=== PATIENT | female | born 1950 | race Caucasian/White ===

== ENCOUNTER 2020-03-02 09:20 | Outpatient (CLI) | payer OTHER, MEDICARE, SELFPAY ==
[2020-03-02 10:23] LABS: Basophils Absolute Auto 0.1 K/mm3 (0.0-0.1); Basophils Percent Auto 0.7 % (0.2-1.2); Eosinophils Absolute Auto 0.1 K/mm3 (0-0.3); Eosinophils Percent Auto 1.2 % (0-4.4); Hematocrit 45.7 % (37.0-47.0); Immature Granulocyte Absolute 0.03 K/mm3 (0.00-0.031); Immature Granulocyte Percent A 0.4 % (0-0.5); Lymphocytes Absolute Auto 1.85 K/mm3 (0.9-3.2); Lymphocytes Percent Auto 24.8 % (18.3-44.2); Mean Corpuscular HGB Conc 32.8 g/dl (32-36); Mean Corpuscular Hemoglobin 30.1 pg (26-34); Mean Corpuscular Volume 91.8 fl (80-100); Mean Platelet Volume 9.9 fl (7.4-10.4); Monocytes Absolute Auto 0.4 K/mm3 (0.1-0.6); Monocytes Percent Auto 5.9 % (2.6-8.5); Platelet Count Result 296 k/mm3 (150-375); Red Blood Count 4.98 M/mm3 (4.2-5.4); Red Cell Distribution Width 14.6 % (11.5-14.5); White Blood Count 7.5 K/mm3 (4.5-10.0)
[2020-03-02 10:30] LABS: Alanine Aminotransferase 15 U/L (4-35); Albumin Level 4.5 g/dL (3.5-5.1); Alkaline Phosphatase 99 U/L (38-126); Aspartate Amino Transferase 27 U/L (14-36); Bilirubin,Total 0.3 mg/dL (0.2-1.3); Blood Urea Nitrogen 22 mg/dL (7-17); Calcium 9.2 mg/dL (8.4-10.2); Carbon Dioxide 22 mmol/L (22-30); Chloride 107 mmol/L (98-107); Cholesterol 234 mg/dL (0-200); Estimated Glomerular Filt Rate > 60; Glucose 103 mg/dL (65-105); HDL Direct 80 mg/dL; Potassium 3.9 mmol/L (3.4-5.0); Sodium 138 mmol/L (137-145); Triglycerides 123 mg/dL (<150)
[2020-03-02 10:41] LABS: LDL Cholesterol Direct 114 mg/dL
[2020-03-02 11:01] LABS: Total Triiodothyronine (T3) 1.07 NG/ML (0.97-1.69)
[2020-03-02 11:28] LABS: Free T4 Free Thyroxine 1.15 ng/mL (0.78-2.19); Vitamin D 25 Hydroxy 29.1 ng/mL
[2020-03-02 11:29] LABS: Creatinine Urine 169.6 mg/dL
[2020-03-02 11:34] LABS: MALB Creatinine Ratio 35.4 mg/g (0-30); Microalbumin Urine Random 60.1 mg/L (0-16.7)
[2020-03-07 08:22] LABS: Metanephrine, Free 48 pg/mL (<=57); Normetanephrine, Free 215 pg/mL (<=148); Total, Free (MN + NMN) 263 pg/mL (<=205)
[2020-03-07 13:47] LABS: Renin 2.66 ng/mL/h (0.25-5.82)
== END 2020-03-02 09:21 | disposition home or self-care (01) ==
PROVIDERS: PCP Family Medicine; Visit Provider Family Medicine
DX: M62.81 Muscle weakness (generalized) (principal); I10 Essential (primary) hypertension; M47.897 Other spondylosis, lumbosacral region; E78.2 Mixed hyperlipidemia; E55.9 Vitamin D deficiency, unspecified
CPT/HCPCS: 36415; 80053; 80061; 82043; 82306; 82542; 83835; 84244; 84439; 84443; 84480; 85025

== ENCOUNTER 2020-03-04 17:24 | Outpatient (CLI) | payer OTHER, MEDICARE, SELFPAY ==
[2020-03-04 18:19] LABS: Total Volume 24 Hour Urine 900 ml
[2020-03-04 18:27] LABS: Creatinine 24 Hour Urine 0.6 gm/24 (0.8-1.8)
[2020-03-09 16:21] LABS: Calculated Total (E+NE) 39 mcg/24 h (26-121); Dopamine, 24hr Urine 579 mcg/24 h (52-480); Norepinephrine, 24hr Urine 39 mcg/24 h (15-100)
[2020-03-14 08:37] LABS: Metanephrine, Total Urine 411 mcg/24 h (224-832); Metanephrine, Urine 93 mcg/24 h (90-315); Normetanephrine, Urine 318 mcg/24 h (122-676); Vanillymandelic Acid 24 Hr Ur 2.7 mg/24 h (<=6.0)
== END 2020-03-04 17:25 | disposition home or self-care (01) ==
PROVIDERS: PCP Family Medicine; Visit Provider Family Medicine
DX: M62.81 Muscle weakness (generalized) (principal); I10 Essential (primary) hypertension; M47.897 Other spondylosis, lumbosacral region; E78.2 Mixed hyperlipidemia; E55.9 Vitamin D deficiency, unspecified
CPT/HCPCS: 81050; 82384; 82570; 83835; 84585

== ENCOUNTER 2020-03-11 14:53 | Emergency (ER) | payer OTHER, MEDICARE, SELFPAY ==
[2020-03-11] VITALS (13 sets, daily range): BP systolic 149–174; BP diastolic 83–97; PULSE 66–75; RESP 13–19; TEMP 36.2; O2SAT 93–100
--- NOTE | ~2020-03-11 | CT_ITS ---
EXAMINATION: CT brain wo con DATE: 03/11/2020 16:01 INDICATION: Headache. TECHNIQUE: Computed tomography (CT) of the head was performed without intravenous contrast. The mA wa s adjusted according to patient size. Iterative reconstruction technique was employed. The dose-lengt h product was 605.33 mGy-cm. COMPARISON: Head CT 10/02/2009 FINDINGS: There is a small old infarct in left cerebellum. There are scattered areas of low attenuati on in the cerebral white matter. There is no intracranial hemorrhage, acute infarction, or abnormal i ntracranial mass lesion. The ventricles are normal in size. There is mild mucosal thickening in the p aranasal sinuses. The mastoid air cells are normal. The orbits are normal. IMPRESSION: 1. Small old infarct in left cerebellum. 2. Mild nonspecific cerebral white matter disease, which likely represents chronic small vessel ische asher disease. Reviewed, dictated and finalized at location A. IMPRESSION: 1. Small old infarct in left cerebellum. 2. 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
--- NOTE | 2020-03-11 15:43 | ECG_ITS ---
Measurements Intervals [place] Rate: 76 P: 85 LA: 141 QRS: 52 QRSD: 86 T: 6 QT: 386 QTc: 434 Interpretive Statements ELECTRONIC ATRIAL PACEMAKER BORDERLINE T WAVE ABNORMALITY- INF/LAT LEADS BORDERLINE ECG Electronically Signed On 03-11-2020 16:47:21 CDT by Kirby Bassett D.O.
[2020-03-11] MEDS: SODIUM CHLORIDE 0.9% IV 1,000 ML 999 ML IV CONT (16:14)
[2020-03-11 16:25] LABS: Basophils Absolute Auto 0.1 K/mm3 (0.0-0.1); Basophils Percent Auto 0.7 % (0.2-1.2); Eosinophils Absolute Auto 0.1 K/mm3 (0-0.3); Eosinophils Percent Auto 1.1 % (0-4.4); Hematocrit 42.3 % (37.0-47.0); Hemoglobin 13.8 g/dL (12.0-15.0); Immature Granulocyte Absolute 0.04 K/mm3 (0.00-0.031); Immature Granulocyte Percent A 0.5 % (0-0.5); Lymphocytes Absolute Auto 2.12 K/mm3 (0.9-3.2); Lymphocytes Percent Auto 29.1 % (18.3-44.2); Mean Corpuscular HGB Conc 32.6 g/dl (32-36); Mean Corpuscular Hemoglobin 30.2 pg (26-34); Mean Corpuscular Volume 92.6 fl (80-100); Mean Platelet Volume 9.7 fl (7.4-10.4); Monocytes Absolute Auto 0.5 K/mm3 (0.1-0.6); Neutrophils Absolute Auto 4.5 K/mm3 (1.3-6.7); Neutrophils Percent Auto 61.6 % (45.5-73.1); Platelet Count Result 281 k/mm3 (150-375); Red Blood Count 4.57 M/mm3 (4.2-5.4); Red Cell Distribution Width 14.3 % (11.5-14.5); White Blood Count 7.3 K/mm3 (4.5-10.0)
[2020-03-11 16:34] LABS: Blood Urea Nitrogen 21 mg/dL (7-17); Calcium 8.8 mg/dL (8.4-10.2); Carbon Dioxide 26 mmol/L (22-30); Chloride 107 mmol/L (98-107); Estimated CRCL calculation 38 ml/min; Estimated Glomerular Filt Rate 55; Glucose 84 mg/dL (65-105); Potassium 3.8 mmol/L (3.4-5.0); Sodium 139 mmol/L (137-145)
[2020-03-11 16:36] LABS: Partial Thromboplastin Time 26.8 SECONDS (22.3-36.8); Prothrombin Time 12.4 Seconds (11.1-14.7)
[2020-03-11 16:45] LABS: Troponin I < 0.012 ng/mL (0.000-0.034)
--- NOTE | 2020-03-11 17:28 | ED.GENADULT ---
HPI - General Adult General Chief complaint: Recheck/Abnormal Lab/Rx <GUSTAVO Noland Last Filed: 03/11/20 17:33> Stated complaint: hypertension <GUSTAVO Noland Last Filed: 03/11/20 17:33> Time Seen by Provider: 03/11/20 15:30 <GUSTAVO Noland Last Filed: 03/11/20 17:33> Source: patient <GUSTAVO Noland Last Filed: 03/11/20 17:33> Mode of arrival: ambulatory <GUSTAVO Noland Last Filed: 03/11/20 17:33> Limitations: no limitations <GUSTAVO Noland Last Filed: 03/11/20 17:33> History of Present Illness HPI narrative: Patient is a 69-year-old female who presents to emergency department for evaluation of elevated blood pressure reading noted at work patient also notes having had a headache for the last couple of days frontal in nature patient is on multiple blood pressure medication has been followed by primary care for this patient on arrival to emergency department is resting comfortably in the room in no distress patient denies any other complaints or symptoms and is otherwise resting comfortably on arrival <GUSTAVO Noland Last Filed: 03/11/20 17:33> Related Data Home medications: Home Medications Medication Instructions Recorded Confirmed amlodipine 03/11/20 atorvastatin 03/11/20 clonidine HCl 03/11/20 cyclobenzaprine mg 03/11/20 ergocalciferol (vitamin D2) 03/11/20 03/11/20 lisinopril 03/11/20 metoprolol succinate PO 03/11/20 pantoprazole PO 03/11/20 tramadol mg 03/11/20 <GUSTAVO Noland Last Filed: 03/11/20 17:33> Allergies/adverse reactions: Allergies Allergy/AdvReac Type Severity Reaction Status Date / Time penicillin G Allergy Mild Unknown Verified 03/11/20 14:55 Penicillins Allergy Unknown Unknown Verified 03/11/20 14:55 <GUSTAVO Noland Last Filed: 03/11/20 17:33> Review of Systems Review of Systems: All systems reviewed & are unremarkable except as noted in HPI and below <GUSTAVO Noland Last Filed: 03/11/20 17:33> [facility] Past Medical History Medical History: Medical History (Updated 03/11/20 @ 17:30 by Hugo Gonzalez PA-C) Hypertension <Hugo Gonzalez PA-C - Last Filed: 03/11/20 17:33> Social History Social History: Social History Smoking status: Light tobacco smoker Alcohol intake: never Gender identity (if verbalized by the patient): Female <Hugo Gonzalez PA-C - Last Filed: 03/11/20 17:33> Exam Narrative: Exam Narrative: GENERAL: Well-appearing, well-nourished, and in no acute distress. HEAD: Normocephalic, atraumatic. EYES: PERRLA and EOMI. ENT: Nares clear, no rhinorrhea or epistaxis. Mucous membranes moist. CHEST: Clear to auscultation. No respiratory distress. No wheezes rales or rhonchi HEART: Regular rate and rhythm. No murmur heard. EXTREMITIES: Normal range of motion. No edema. SKIN: Warm, dry, no rash. NEURO: No focal deficits. Alert and oriented x3. Cranial nerves II through XII grossly intact PSYCH: Normal mood and affect. <Hugo Gonzalez PA-C - Last Filed: 03/11/20 17:33> Course Course Emergency Course: Patient in the room was hydrated given Tylenol with improvement of the headache resting comfortably neurologically intact aware of case findings treatment plan and diagnosis agreeing to follow-up with primary care <Hugo Gonzalez PA-C - Last Filed: 03/11/20 17:33> Vital Signs Vital signs: Vital Signs Temperature 97.2 F L 03/11/20 15:03 Pulse Rate 66 03/11/20 15:03 Respiratory Rate 18 03/11/20 15:03 Blood Pressure 155/96 H 03/11/20 15:03 Pulse Oximetry 98 03/11/20 15:03 Temperature 97.2 F L 03/11/20 15:03 Pulse Rate 70 03/11/20 16:16 Respiratory Rate 13 03/11/20 16:16 Blood Pressure 169/89 H 03/11/20 16:16 Pulse Oximetry 100 03/11/20 16:16 <Hugo Gonzalez PA-C - [place]
== END 2020-03-11 18:00 | disposition home or self-care (01) ==
PROVIDERS: Emergency Medicine Emergency Medical Services; Emergency Provider Emergency Medicine; PCP Family Medicine
DX: R51 Headache (principal); I10 Essential (primary) hypertension; Z95.0 Presence of cardiac pacemaker; R94.31 Abnormal electrocardiogram [ECG] [EKG]; F17.200 Nicotine dependence, unspecified, uncomplicated
CPT/HCPCS: 36415; 70450; 80048; 84484; 85025; 85610; 85730; 93005; 96365; 99284; J0131; J7030

== ENCOUNTER 2020-06-20 09:28 | Outpatient (CLI) | payer MEDICARE, SELFPAY ==
--- NOTE | ~2020-06-20 | US_ITS ---
EXAMINATION: US venous doppler LE RT DATE: 06/20/2020 10:01 INDICATION: Right lower limb pain TECHNIQUE: Prater scale images without and with compression and Doppler images of the right lower extre mity veins were obtained. COMPARISON: None FINDINGS: The right common femoral vein, profunda femoral vein, femoral vein, popliteal vein, peronea l trunk, posterior tibial veins, and greater saphenous vein are patent. IMPRESSION: 1. Patent right lower extremity veins. No evidence of deep venous thrombosis. Reviewed, dictated and finalized at location A.
== END 2020-06-20 09:29 | disposition home or self-care (01) ==
LOC: ANHIMG 09:40
PROVIDERS: PCP Nurse Practitioner; Visit Provider Nurse Practitioner
DX: M79.661 Pain in right lower leg (principal)
CPT/HCPCS: 93971

== ENCOUNTER 2020-08-21 11:10 | Outpatient (CLI) | payer MEDICARE, SELFPAY ==
--- NOTE | ~2020-08-21 | XR_ITS ---
EXAMINATION: XR lg joint inject/asp w image DATE: 08/21/2020 11:56 INDICATION: Right hip arthritis. TECHNIQUE: A time-out was performed to verify the patient's name, date of , and procedure to b e performed. The procedure including the risks, benefits, and alternatives was discussed with the pat ient. Risks discussed included bleeding and infection. The patient understood the risks and agreed to proceed. The skin overlying the right hip joint was prepped and draped in usual sterile fashion. A nesthetic was administered with 1% lidocaine subcutaneously. A 22 G needle was advanced under fluoro scopic guidance into the joint. Injection of 1 mL of Omnipaque 240 confirmed intra-articular positio n of the needle. Subsequently, injectate consisting of 2 mL 0.5% bupivacaine and 1 mL 80 mg/mL Depo- Medrol was instilled. The needle was removed and the entry site was cleaned and dressed. There were no immediate complications. Fluoroscopy exposure time was 0.1 minutes. The total number of images wa s 2. FINDINGS: Real-time fluoroscopy demonstrates the needle in the right hip joint. Patient's pain prior to procedure:06/15. Patient's pain following the procedure: 10/16. IMPRESSION: 1. Right hip joint injection of local anesthetic and steroid with decrease in the patient's presentin g pain. Reviewed, dictated and finalized at location A. CONSULTANT IMPRESSION: 1. Right hip joint injection of local anesthetic and steroid with decrease in t he patient's presenting pain.
== END 2020-08-21 11:11 | disposition home or self-care (01) ==
PROVIDERS: PCP Nurse Practitioner; Visit Provider Orthopaedic Surgery
DX: M16.11 Unilateral primary osteoarthritis, right hip (principal)
CPT/HCPCS: 20610; 77002; J1040; Q9966

== ENCOUNTER 2020-11-25 12:55 | Outpatient (CLI) | payer MEDICARE, SELFPAY ==
[2020-11-25 14:07] LABS: Vitamin D 25 Hydroxy 30.9 ng/mL
== END 2020-11-25 12:56 | disposition home or self-care (01) ==
PROVIDERS: PCP Nurse Practitioner; Visit Provider Nurse Practitioner
DX: E55.9 Vitamin D deficiency, unspecified (principal)
CPT/HCPCS: 36415; 82306

== ENCOUNTER 2020-11-29 07:55 | Outpatient (CLI) | payer MEDICARE, SELFPAY ==
--- NOTE | ~2020-11-29 | US_ITS ---
US abdomen complete EXAMINATION: US Abdomen Complete INDICATION: Generalized abdominal pain PROCEDURE: Realtime High Resolution abdomen ultrasound. COMPARISON: No prior studies for comparison FINDINGS: Gallbladder within normal limits. No gallstones, pericholecystic fluid, gallbladder wall t hickening or biliary dilatation. Common bile duct measures 7 mm. Liver echotexture within normal limits without focal mass. Pancreas within normal limits. Pancreati c tail is obscured by bowel gas. Spleen is unremarkeable. Renal echotexture is within normal limits bilaterally without hydronephrosis, contour deforming mass or renal stone. Right kidney measures 8.4 cm. Left kidney measures 10.2 cm. Visualized aspects of the aorta and IVC are within normal limits. Portal vein is patent. No sonograph ic Newsome's sign indicated by the technologist. IMPRESSION: 1: Normal abdominal ultrasound. Reviewed, dictated and finalized at location B.
== END 2020-11-29 07:56 | disposition home or self-care (01) ==
PROVIDERS: PCP Nurse Practitioner; Visit Provider Nurse Practitioner
DX: R10.10 Upper abdominal pain, unspecified (principal)
CPT/HCPCS: 76700

== ENCOUNTER 2020-12-26 07:42 | Outpatient (CLI) | payer MEDICARE, SELFPAY ==
--- NOTE | ~2020-12-26 | DEXA_ITS ---
Bone Density Report Name: Katie Alexander Age: 70 Sex: Female Ethnicity: White Date of : 1950 Indication: postmenopausal osteoporosis; prior fracture; hysterectomy; Referring Provider: Mario, Grace Arvizu Study: Bone densitometry was performed. Exam Date: December 26, 2020 Accession number: [id number] Bone Density: Region BMD T-score Z-score Classification AP Spine (L1-L4) 0.661 -3.5 -1.5 Osteoporosis Femoral Neck (Left) 0.474 -3.4 -1.7 Osteoporosis Total Hip (Left) 0.539 -3.3 -1.9 Osteoporosis Total Hip Bilateral Avg 0.538 -3.3 -1.9 Osteoporosis Femoral Neck (Right) 0.515 -3.0 -1.3 Osteoporosis Total Hip (Right) 0.536 -3.3 -1.9 Osteoporosis World Health Organization criteria for BMD impression classify patients as: Normal (T-score at or above -1.0), Osteopenia (T-score between -1.0 and -2.5), or Osteoporosis (T-score at or below -2.5). 10-year Fracture Risk: FRAX not reported because: Some T-score for Spine Total or Hip Total or Femoral Neck at or below -2.5 Previous Exams: Region Exam Age BMD T-score BMD Change BMD Change Date g/cm2 vs Baseline vs Previous AP Spine(L1-L4) 12/26/2020 70 0.661 -3.5 -0.035(-5.1%)* -0.035(-5.1%)* 06/01/2018 67 0.696 -3.2 Total Hip(Left) 12/26/2020 70 0.539 -3.3 -0.028(-4.9%)* -0.028(-4.9%)* 06/01/2018 67 0.567 -3.1 Total Hip(Right) 12/26/2020 70 0.536 -3.3 -0.007(-1.4%) -0.007(-1.4%) 06/01/2018 67 0.543 -3.3 *Denotes significance at 95% confidence level, LSC for AP Spine = 0.022 g/cm2, LSC for Total Hip = 0.027 g/cm2 Clinical Information Provided by Patient: Has had a low trauma fracture Has used the following medications: Vitamin D Has the following medical conditions: Hysterectomy Patient maximum height was 64 Menopause Age: 32 No regular weight bearing exercise Does not regularly consume dairy products Onset of menses at age 16 Number of children 2 Impression: The patient has established osteoporosis, based on the Total Spine T-score and the existence of a prior fracture. The patient has risk factors, including: previous fracture. The BMD for the AP Spine(L1-L4) decreased, changing by -5.1% since the last DXA exam. The BMD for the Total Hip(Left) decreased, changing by -4.9% since the last DXA exam. Discussion: HIGH RISK OF FRACTURE. BONE DENSITY IS UNDESIRABLY LOW AT ONE OR MORE SKELETAL SITES, CONSISTENT WITH POSTMENOPAUSAL OSTEOPOROSIS. This patient's lowest T-score, in a patient who has previo
== END 2020-12-26 07:43 | disposition home or self-care (01) ==
PROVIDERS: PCP Nurse Practitioner; Visit Provider Nurse Practitioner
DX: M81.0 Age-related osteoporosis without current pathological fracture (principal)
CPT/HCPCS: 77080

== ENCOUNTER 2021-06-11 15:11 | Emergency (ER) | payer MEDICARE, SELFPAY ==
--- NOTE | ~2021-06-11 | XR_ITS ---
EXAMINATION: XR chest 2V EXAM DATE: 06/11/2021 15:48 INDICATION: Sob, cough X 4 Days,Hx Of Mitral Valve Prolapse. TECHNIQUE: Frontal and lateral projections of the chest obtained and reviewed. Comparison is made to prior examination from 01/23/2014. FINDINGS: There is a dual lead pacemaker/AICD seen with leads projecting over the expected locations of the right atrial appendage and right ventricle. The lungs are clear. There are no pleural effusio ns. The cardiomediastinal silhouette is within normal limits. There is no pneumothorax suspected. The bones and soft tissues are unremarkable. IMPRESSION: No acute cardiopulmonary findings. Reviewed, dictated and finalized at location A.
--- NOTE | 2021-06-11 15:32 | ECG_ITS ---
Measurements Intervals [place] Rate: 85 P: 72 CT: 112 QRS: 26 QRSD: 93 T: 48 QT: 391 QTc: 466 Interpretive Statements SINUS RHYTHM POSSIBLE LEFT ATRIAL ENLARGEMENT BORDERLINE ST-T WAVE ABNORMALITY- ANTEROLAT/INF LEADS BASELINE ARTIFACT- I, II, III, AVR, AVL, AVF BORDERLINE ECG Electronically Signed On 06-11-2021 15:48:50 CDT by Kirby Bassett D.O.
[2021-06-11 15:33] VITALS: BP 154/105; PULSE 84; RESP 14; TEMP 36.8; O2SAT 99
[2021-06-11 15:53] LABS: Anion Gap 11 mmol/L (8-16); Blood Urea Nitrogen 23 mg/dL (7-17); Calcium 10.2 mg/dL (8.4-10.2); Carbon Dioxide 25 mmol/L (22-30); Chloride 105 mmol/L (98-107); Estimated CRCL calculation 36 ml/min; Estimated Glomerular Filt Rate 49; Glucose 141 mg/dL (65-110); Potassium 3.9 mmol/L (3.4-5.0); Sodium 141 mmol/L (137-145)
[2021-06-11 15:58] LABS: Basophils Absolute Auto 0.1 K/mm3 (0.0-0.1); Basophils Percent Auto 0.8 % (0.2-1.2); Eosinophils Percent Auto 0.3 % (0-4.4); Hematocrit 47.6 % (37.0-47.0); Hemoglobin 15.5 g/dL (12.0-15.0); Immature Granulocyte Absolute 0.03 K/mm3 (0.00-0.031); Immature Granulocyte Percent A 0.4 % (0-0.5); Lymphocytes Absolute Auto 1.56 K/mm3 (0.9-3.2); Lymphocytes Percent Auto 19.7 % (18.3-44.2); Mean Corpuscular HGB Conc 32.6 g/dl (32-36); Mean Corpuscular Hemoglobin 29.5 pg (26-34); Mean Corpuscular Volume 90.7 fl (80-100); Mean Platelet Volume 9.6 fl (7.4-10.4); Monocytes Absolute Auto 0.4 K/mm3 (0.1-0.6); Monocytes Percent Auto 4.4 % (2.6-8.5); Neutrophils Absolute Auto 5.9 K/mm3 (1.3-6.7); Neutrophils Percent Auto 74.4 % (45.5-73.1); Platelet Count Result 335 k/mm3 (150-375); Red Blood Count 5.25 M/mm3 (4.2-5.4); Red Cell Distribution Width 14.6 % (11.5-14.5); White Blood Count 7.9 K/mm3 (4.5-10.0)
[2021-06-11 19:28] VITALS: BP 179/106; PULSE 73; RESP 23; O2SAT 100
--- NOTE | 2021-06-11 19:29 | PC.NURSE ---
Assumed care of pt at this time. Pt alert and upright on stretcher, with c/o SOB. Pt O2 saturations 100% on RA, no distress noted. Pt updated on POC at this time.
--- NOTE | 2021-06-11 20:59 | PC.NURSE ---
Pt pressed call light and requested to speak with nurse. This RN entered room and pt asked if she could sign AMA papers. Pt stated that she looked at her results on her Patient Portal account and that everything looked okay . Pt reports she will discuss her results with her PCP at her next appointment. EDP notified.
[2021-06-11 21:05] VITALS: BP 179/95; PULSE 72; RESP 25; O2SAT 98
--- NOTE | 2021-06-18 15:05 | ED.SOB ---
HPI - SOB/Dyspnea General Chief Complaint: Shortness of Breath/Dyspnea Stated Complaint: cough, sob Time Seen by Provider: 06/11/21 18:51 History of Present Illness HPI Narrative: Patient left without being seen. Had patient sign AMA form due to seriousness of complaint. Related Data Home Medications Medication Instructions Recorded Confirmed clonidine HCl 03/11/20 02/10/21 ergocalciferol (vitamin D2) 03/11/20 02/10/21 lisinopril 03/11/20 02/10/21 metoprolol succinate PO 03/11/20 02/10/21 tramadol mg 03/11/20 02/10/21 atorvastatin 10 mg tablet 10 mg PO DAILY 08/09/20 02/10/21 losartan 100 mg tablet 100 mg PO DAILY 08/09/20 02/10/21 spironolactone 100 mg tablet 100 mg PO DAILY 08/09/20 02/10/21 Allergies Allergy/AdvReac Type Severity Reaction Status Date / Time penicillin G Allergy Mild Unknown Verified 06/11/21 18:40 Penicillins Allergy Unknown Unknown Verified 06/11/21 18:40 [facility] Past Medical History Medical History Cataracts, both eyes Chronic headaches Claustrophobia History of pituitary tumor Hypertension Kidney stones Osteoporosis Pacemaker Rheumatoid arthritis Stroke Unintentional weight loss Uses contact lenses Surgical History Surgical History History of hysterectomy History of permanent cardiac pacemaker placement History of pituitary surgery tumor removal History of surgery on wrist Family History Family History Other Cerebrovascular accident Heart disease Hypertension Lung disease Social History Social History Smoking packs per day: 1 Smoking cigarettes per day: 20.0 Years smoked: 17 Smoking pack-years: 17.00 Alcohol intake: never Gender identity (if verbalized by the patient): Female Course Vital Signs Vital signs: Vital Signs Temperature 36.8 C 06/11/21 15:33 Pulse Rate 84 06/11/21 15:33 Respiratory Rate 14 06/11/21 15:33 Blood Pressure 154/105 H 06/11/21 15:33 Pulse Oximetry 99 10/06/21 15:33 Temperature 36.8 C 06/11/21 15:33 Pulse Rate 72 06/11/21 21:05 Respiratory Rate 25 H 06/11/21 21:05 Blood Pressure 179/95 H 06/11/21 21:05 Pulse Oximetry 98 06/11/21 21:05 MDM - SOB/Dyspnea Lab Data Result diagrams: 06/11/21 15:38 06/11/21 15:38 Labs: Lab Results 06/11/21 06/11/21 Range/Units 15:38 15:38 WBC 7.9 (4.5-10.0) K/mm3 RBC 5.25 (4.2-5.4) M/mm3 Hgb 15.5 H (12.0-15.0) g/dL Hct 47.6 H (37.0-47.0) % MCV 90.7 (80-100) fl MCH 29.5 (26-34) pg MCHC 32.6 (32-36) g/dl RDW 14.6 H (11.5-14.5) % Plt Count 335 (150-375) k/mm3 MPV 9.6 (7.4-10.4) fl Immature Gran % (Auto) 0.4 (0-0.5) % Neut % (Auto) 74.4 H (45.5-73.1) % Lymph % (Auto) 19.7 (18.3-44.2) % [place] % (Auto) 4.4 (2.6-8.5) % Eos % (Auto) 0.3 (0-4.4) % Baso % (Auto) 0.8 (0.2-1.2) % Lymph # (Auto) 1.56 (0.9-3.2) K/mm3 [place] # (Auto) 0.4 (0.1-0.6) K/mm3 Eos # (Auto) 0.0 (0-0.3) K/mm3 Baso # (Auto) 0.1 (0.0-0.1) K/mm3 Abs Immat Gran (auto) 0.03 (0.00-0.031) K/mm3 Absolute Neuts (auto) 5.9 (1.3-6.7) K/mm3 Absolute Nucleated RBC 0.0 (0.0-0.012) K/mm3 Nucleated RBC % 0.0 (0.0-0.2) % Sodium 141 (137-145) mmol/L Potassium 3.9 (3.4-5.0) mmol/L Chloride 105 (98-107) mmol/L Carbon Dioxide 25 (22-30) mmol/L Anion Gap 11 (8-16) mmol/L BUN 23 H (7-17) mg/dL Creatinine 1.10 H (0.7-1.0) mg/dL Estim Creat Clear Calc 36 ml/min Estimated GFR 49 L (59 - ) Glucose 141 H (65-110) mg/dL Calcium 10.2 (8.4-10.2) mg/dL Discharge Plan Discharge Clinical Impression: Breath shortness, Left against medical advice Patient Disposition: Left Against Medical Advice Condition: Serious Pres
== END 2021-06-11 21:05 | disposition left against medical advice (07) ==
PROVIDERS: Emergency Medicine; Emergency Provider Emergency Medicine; PCP Nurse Practitioner
DX: R06.02 Shortness of breath (principal)
CPT/HCPCS: 36415; 71046; 80048; 85025; 93005; 99199

== ENCOUNTER 2021-08-15 10:15 | Outpatient (CLI) | payer MEDICARE, SELFPAY ==
[2021-08-15 10:57] LABS: Basophils Absolute Auto 0.1 K/mm3 (0.0-0.1); Basophils Percent Auto 0.8 % (0.2-1.2); Eosinophils Absolute Auto 0.1 K/mm3 (0-0.3); Eosinophils Percent Auto 0.9 % (0-4.4); Hematocrit 45.3 % (37.0-47.0); Hemoglobin 14.8 g/dL (12.0-15.0); Immature Granulocyte Absolute 0.03 K/mm3 (0.00-0.031); Immature Granulocyte Percent A 0.4 % (0-0.5); Lymphocytes Absolute Auto 1.54 K/mm3 (0.9-3.2); Lymphocytes Percent Auto 19.7 % (18.3-44.2); Mean Corpuscular HGB Conc 32.7 g/dl (32-36); Mean Corpuscular Hemoglobin 30.2 pg (26-34); Mean Corpuscular Volume 92.4 fl (80-100); Mean Platelet Volume 9.6 fl (7.4-10.4); Monocytes Absolute Auto 0.4 K/mm3 (0.1-0.6); Monocytes Percent Auto 5.6 % (2.6-8.5); Neutrophils Absolute Auto 5.7 K/mm3 (1.3-6.7); Neutrophils Percent Auto 72.6 % (45.5-73.1); Platelet Count Result 284 k/mm3 (150-375); Red Cell Distribution Width 14.5 % (11.5-14.5); White Blood Count 7.8 K/mm3 (4.5-10.0)
[2021-08-15 11:01] LABS: Alanine Aminotransferase 25 U/L (4-35); Albumin Level 4.6 g/dL (3.5-5.1); Alkaline Phosphatase 97 U/L (38-126); Anion Gap 9 mmol/L (8-16); Aspartate Amino Transferase 31 U/L (14-36); Bilirubin,Total 0.4 mg/dL (0.2-1.3); Blood Urea Nitrogen 23 mg/dL (7-17); Calcium 9.8 mg/dL (8.4-10.2); Carbon Dioxide 24 mmol/L (22-30); Chloride 103 mmol/L (98-107); Cholesterol 250 mg/dL (0-200); Estimated Glomerular Filt Rate 32; Glucose 118 mg/dL (65-110); HDL Direct 74 mg/dL; Potassium 3.9 mmol/L (3.4-5.0); Sodium 136 mmol/L (137-145); Triglycerides 196 mg/dL (<150)
[2021-08-15 11:12] LABS: LDL Cholesterol Direct 120 mg/dL
[2021-08-15 11:24] LABS: Vitamin D 25 Hydroxy 26.9 ng/mL
[2021-08-15 11:32] LABS: Total Triiodothyronine (T3) 1.09 NG/ML (0.97-1.69)
[2021-08-15 11:38] LABS: MALB Creatinine Ratio 40.9 mg/g (0-30); Microalbumin Urine Random 41.3 mg/L (0-16.7)
== END 2021-08-15 10:16 | disposition home or self-care (01) ==
LOC: ANHLAB 10:17
PROVIDERS: PCP Nurse Practitioner; Visit Provider Family Medicine
DX: R80.9 Proteinuria, unspecified (principal); Z13.6 Encounter for screening for cardiovascular disorders; Z13.0 Encounter for screening for diseases of the blood and blood-forming organs and certain disorders involving the immune mechanism; Z13.220 Encounter for screening for lipoid disorders; Z13.29 Encounter for screening for other suspected endocrine disorder; E55.9 Vitamin D deficiency, unspecified; I10 Essential (primary) hypertension
CPT/HCPCS: 36415; 80053; 80061; 82043; 82306; 84439; 84443; 84480; 85025

== ENCOUNTER 2021-11-11 12:06 | Outpatient (CLI) | payer MEDICARE, SELFPAY ==
--- NOTE | ~2021-11-11 | XR_ITS ---
EXAMINATION: XR ankle LT min 3V DATE: 11/11/2021 12:33 INDICATION: Left ankle pain TECHNIQUE: Anteroposterior, lateral, mortise, and additional oblique view of the ankle were obtained. COMPARISON: None. FINDINGS: There is no fracture, dislocation, or subluxation. The bones, soft tissues, and joint space s are normal. IMPRESSION: 1. No acute osseous abnormality. Reviewed, dictated and finalized at location B. 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
--- NOTE | ~2021-11-11 | XR_ITS ---
EXAMINATION: XR chest 2V DATE: 11/11/2021 12:33 INDICATION: Chronic pulmonary edema. TECHNIQUE: Frontal and lateral views of the chest were obtained. COMPARISON: Chest 2 views 06/11/2021, 11/09/2012 FINDINGS: The chest demonstrates clear lungs without pneumonia, pleural effusion, or pneumothorax. Th e heart size is normal. There is a left chest pacer/defibrillator with leads in right atrium and righ t ventricle. There is mild chronic anterior wedging of multiple midthoracic vertebral bodies. There i s a chronic sclerotic lesion in right humeral head, likely benign. IMPRESSION: 1. No acute cardiopulmonary disease. Reviewed, dictated and finalized at location A. ER PLACER
== END 2021-11-11 12:07 | disposition home or self-care (01) ==
PROVIDERS: PCP Nurse Practitioner Adult Health; Visit Provider Nurse Practitioner Adult Health
DX: S93.402A Sprain of unspecified ligament of left ankle, initial encounter (principal); J81.1 Chronic pulmonary edema
CPT/HCPCS: 71046; 73610

== ENCOUNTER 2021-11-24 13:36 | Outpatient (CLI) | payer MEDICARE, SELFPAY ==
--- NOTE | ~2021-11-24 | CT_ITS ---
EXAMINATION: CT ankle LT wo con DATE: 11/24/2021 13:57 INDICATION: Left ankle ligament sprain presenting with pain TECHNIQUE: Low dose computed tomography (CT) of the left ankle to evaluate for genitourinary stones w as performed without intravenous contrast. Automated exposure control and iterative reconstruction te chnique were employed. The dose-length product was 312.96 mGy-cm. A supine view of the abdomen was ob tained on [2 radiographs]. COMPARISON: Left ankle radiographs dated 11/23/2021 FINDINGS: Bone alignment is normal. No fracture. Joint spaces are normal. Soft tissues are unremarkable with no focal soft tissue swelling or ankle joint effusion. The medial and lateral stabilizing ligaments of the ankle and the flexor and extensor tendons are unremarkable although assessment is significantly m ore limited than with MRI. IMPRESSION: 1. Unremarkable CT of the left ankle. Reviewed, dictated and finalized at location A.
== END 2021-11-24 13:37 | disposition home or self-care (01) ==
LOC: ANHIMG 13:39
PROVIDERS: PCP Nurse Practitioner Adult Health; Visit Provider Nurse Practitioner Adult Health
DX: S93.402A Sprain of unspecified ligament of left ankle, initial encounter (principal)
CPT/HCPCS: 73700

== ENCOUNTER 2022-03-03 10:21 | Outpatient (CLI) | payer MEDICARE, SELFPAY ==
--- NOTE | ~2022-03-03 | CT_ITS ---
EXAMINATION: CTA abdomen DATE: 03/03/2022 10:58 INDICATION: Uncontrolled hypertension TECHNIQUE: Computed tomographic angiography (CTA) of the abdomen was performed with 100 mL Omnipaque- 300 intravenous contrast. Maximum intensity projection 3D-reconstructions of the aorta and other chanel ave were constructed by the technologist on a separate workstation. The dose-length product (DLP) wa s 134.74 mGy-cm. Automated exposure control and iterative reconstruction technique were employed. COMPARISON: 03/10/2012 FINDINGS: There is a 3.3 cm fusiform aneurysm of the infrarenal abdominal aorta. There is no dissecti on. Single renal arteries are present bilaterally. No atherosclerosis or hemodynamically significant stenosis is identified in the renal arteries. The origins of the celiac axis, superior mesenteric art milvia, inferior mesenteric artery are unremarkable. Minimal dependent atelectasis is present in the lung bases. The heart size is normal. A 7 mm subcapsu lar area of enhancing lesion of the right hepatic lobe likely reflects a flash filling hemangioma. Th e spleen, pancreas, and gallbladder are normal. Stable bilateral adrenal masses are consistent with a denomas. Cysts of the kidneys measure up to 10 mm on the left. There are no pathologically enlarged a bdominal lymph nodes. A moderate volume of colonic stool is present. There is no free intraperitoneal gas or evidence of bowel obstruction. There is severe lumbar spondylosis. IMPRESSION: 1. No evidence of renal artery stenosis. 2. 3.3 cm fusiform infrarenal abdominal aortic aneurysm. 3. Bilateral adrenal adenomas. Reviewed, dictated and finalized at location A.
[2022-03-03 10:45] LABS: Estimated Glomerular Filt Rate 37
== END 2022-03-03 10:22 | disposition home or self-care (01) ==
PROVIDERS: PCP Nurse Practitioner Adult Health; Visit Provider Nurse Practitioner Adult Health
DX: I16.0 Hypertensive urgency (principal); I71.4 Abdominal aortic aneurysm, without rupture; D35.02 Benign neoplasm of left adrenal gland; D35.01 Benign neoplasm of right adrenal gland
CPT/HCPCS: 74175; Q9967

== ENCOUNTER 2022-05-06 14:49 | Outpatient (CLI) | payer MEDICARE, SELFPAY ==
[2022-05-06 16:00] LABS: Basophils Absolute Auto 0.1 K/mm3 (0.0-0.1); Eosinophils Absolute Auto 0.1 K/mm3 (0-0.3); Eosinophils Percent Auto 1.6 % (0-4.4); Hemoglobin 14.4 g/dL (12.0-15.0); Immature Granulocyte Absolute 0.06 K/mm3 (0.00-0.031); Immature Granulocyte Percent A 0.7 % (0-0.5); Lymphocytes Absolute Auto 2.23 K/mm3 (0.9-3.2); Lymphocytes Percent Auto 27.2 % (18.3-44.2); Mean Corpuscular Hemoglobin 29.4 pg (26-34); Mean Platelet Volume 9.8 fl (7.4-10.4); Monocytes Absolute Auto 0.5 K/mm3 (0.1-0.6); Neutrophils Absolute Auto 5.2 K/mm3 (1.3-6.7); Neutrophils Percent Auto 63.5 % (45.5-73.1); Platelet Count Result 323 k/mm3 (150-375); Red Blood Count 4.89 M/mm3 (4.2-5.4); Red Cell Distribution Width 15.3 % (11.5-14.5); White Blood Count 8.2 K/mm3 (4.5-10.0)
[2022-05-06 16:11] LABS: Alanine Aminotransferase 29 U/L (6-35); Albumin Level 4.5 g/dL (3.5-5.1); Alkaline Phosphatase 115 U/L (38-126); Anion Gap 11 mmol/L (8-16); Aspartate Amino Transferase 35 U/L (14-36); Bilirubin,Total 0.4 mg/dL (0.2-1.3); Blood Urea Nitrogen 29 mg/dL (7-17); Calcium 9.5 mg/dL (8.4-10.2); Carbon Dioxide 23 mmol/L (22-30); Chloride 103 mmol/L (98-107); Cholesterol 257 mg/dL (0-200); Estimated Glomerular Filt Rate 37; Glucose 91 mg/dL (65-110); HDL Direct 74 mg/dL; Potassium 4.3 mmol/L (3.4-5.0); Sodium 137 mmol/L (137-145); Triglycerides 178 mg/dL (<150)
[2022-05-06 16:22] LABS: LDL Cholesterol Direct 116 mg/dL
[2022-05-06 16:28] LABS: T4 Thyroxine 9.82 ug/dL (5.53-11.0)
[2022-05-06 17:09] LABS: Free T4 Free Thyroxine 1.24 ng/mL (0.78-2.19); Vitamin D 25 Hydroxy 20.4 ng/mL
[2022-05-06 17:19] LABS: Hemoglobin A1C 5.8 % (<5.7)
== END 2022-05-06 14:50 | disposition home or self-care (01) ==
LOC: ANHLAB 15:03
PROVIDERS: PCP Nurse Practitioner Adult Health; Visit Provider Family Medicine
DX: E78.5 Hyperlipidemia, unspecified (principal); I10 Essential (primary) hypertension; E55.9 Vitamin D deficiency, unspecified; E11.9 Type 2 diabetes mellitus without complications; R53.83 Other fatigue; R53.1 Weakness
CPT/HCPCS: 36415; 80053; 80061; 82306; 83036; 84436; 84439; 84443; 85025

== ENCOUNTER 2022-07-24 08:29 | Outpatient (CLI) | payer MEDICARE, SELFPAY ==
--- NOTE | ~2022-07-24 | CT_ITS ---
EXAMINATION: CT brain wo/w con DATE: 07/24/2022 09:13 INDICATION: Malignant brain tumor TECHNIQUE: Computed tomography (CT) of the head was performed without intravenous contrast. The mA wa s adjusted according to patient size. Iterative reconstruction technique was employed. Exam dose: 12 10.67 mGy-cm total exam DLP. COMPARISON: None FINDINGS: No intracranial mass lesion or hemorrhage or recent cerebrovascular accident is detected. Small chronic left cerebellar infarct. Bilateral carotid siphon internal carotid artery calcifications. No subdural or epidural hematoma. No fracture or bone destruction of the cranial vault. Included paranasal sinuses and mastoid air cell s are unremarkable. IMPRESSION: Cerebral atherosclerosis Chronic small left cerebellar infarct No acute intracranial finding or significant change since 03/11/2020 Reviewed, dictated and finalized at Location A. Reviewed, dictated and finalized at location B. LIBRARIAN
[2022-07-24 09:06] LABS: Estimated Glomerular Filt Rate 41
[2022-07-24 10:24] LABS: Alanine Aminotransferase 351 U/L (6-35); Albumin Level 4.3 g/dL (3.5-5.1); Alkaline Phosphatase 273 U/L (38-126); Anion Gap 13 mmol/L (8-16); Aspartate Amino Transferase 342 U/L (14-36); Blood Urea Nitrogen 17 mg/dL (7-17); Calcium 9.3 mg/dL (8.4-10.2); Carbon Dioxide 26 mmol/L (22-30); Chloride 99 mmol/L (98-107); Estimated Glomerular Filt Rate 45; Glucose 131 mg/dL (65-110); Potassium 3.8 mmol/L (3.4-5.0); Sodium 138 mmol/L (137-145)
[2022-07-24 10:45] LABS: Hemoglobin A1C 6.4 % (<5.7)
[2022-07-28 11:59] LABS: DHEA-Sulfate 24 mcg/dL (12-133); Insulin Level Total 11.9 uIU/mL (<=19.6)
[2022-07-28 20:17] LABS: Adrenocorticotropic Hormone 9 pg/mL (6-50)
== END 2022-07-24 08:30 | disposition home or self-care (01) ==
PROVIDERS: PCP Nurse Practitioner Adult Health; Referring Provider Nurse Practitioner; Visit Provider Nurse Practitioner Adult Health
DX: I15.9 Secondary hypertension, unspecified (principal); Z85.9 Personal history of malignant neoplasm, unspecified; I67.2 Cerebral atherosclerosis; I63.89 Other cerebral infarction; E11.65 Type 2 diabetes mellitus with hyperglycemia; E24.9 Cushing's syndrome, unspecified
CPT/HCPCS: 70470; 80053; 82024; 82627; 83036; 83525; Q9967

== ENCOUNTER 2022-09-01 09:41 | Outpatient (CLI) | payer MEDICARE, SELFPAY ==
--- NOTE | ~2022-09-01 | US_ITS ---
Limited Abdominal Sonogram: Real-time sonographic imaging of the right upper quadrant was performed. Clinical History: Abnormal LFTs Findings: The liver appears normal with no evidence of mass lesion or bile duct dilatation. Main por shamir vein demonstrates normal direction of flow. The gallbladder is well distended, and appears normal with no evidence of gallstone or wall thickening. The common bile duct measures 4 mm. The visualize d pancreas, aorta, and IVC are unremarkable. Impression: No significant abnormality seen. Reviewed, dictated and finalized at location M. MOBILE BRAKES BONDER Impression: No significant abnormality seen.
== END 2022-09-01 09:42 | disposition home or self-care (01) ==
LOC: ANHIMG 09:42
PROVIDERS: PCP Nurse Practitioner Adult Health; Visit Provider Nurse Practitioner Adult Health
DX: R94.5 Abnormal results of liver function studies (principal); R74.8 Abnormal levels of other serum enzymes; R97.8 Other abnormal tumor markers
CPT/HCPCS: 76705

== ENCOUNTER 2023-05-24 11:10 | Outpatient (CLI) | payer MEDICARE, SELFPAY ==
[2023-05-24 11:37] LABS: Basophils Absolute Auto 0.1 K/mm3 (0.0-0.1); Basophils Percent Auto 0.6 % (0.2-1.2); Eosinophils Absolute Auto 0.1 K/mm3 (0-0.3); Eosinophils Percent Auto 0.7 % (0-4.4); Hematocrit 38.8 % (37.0-47.0); Hemoglobin 12.1 g/dL (12.0-15.0); Immature Granulocyte Absolute 0.39 K/mm3 (0.00-0.031); Immature Granulocyte Percent A 2.1 % (0-0.5); Lymphocytes Absolute Auto 2.37 K/mm3 (0.9-3.2); Lymphocytes Percent Auto 12.8 % (18.3-44.2); Mean Corpuscular HGB Conc 31.2 g/dl (32-36); Mean Corpuscular Hemoglobin 29.2 pg (26-34); Mean Corpuscular Volume 93.5 fl (80-100); Mean Platelet Volume 9.1 fl (7.4-10.4); Monocytes Absolute Auto 0.9 K/mm3 (0.1-0.6); Monocytes Percent Auto 4.8 % (2.6-8.5); Neutrophils Absolute Auto 14.7 K/mm3 (1.3-6.7); Nucleated Red Blood Cells Perc 0.1 % (0.0-0.2); Platelet Count Result 297 k/mm3 (150-375); Red Blood Count 4.15 M/mm3 (4.2-5.4); Red Cell Distribution Width 17.2 % (11.5-14.5); White Blood Count 18.6 K/mm3 (4.5-10.0)
[2023-05-24 11:50] LABS: Alanine Aminotransferase 63 U/L (6-35); Albumin Level 3.6 g/dL (3.5-5.1); Alkaline Phosphatase 118 U/L (38-126); Anion Gap 9 mmol/L (8-16); Aspartate Amino Transferase 55 U/L (14-36); Bilirubin,Total 0.4 mg/dL (0.2-1.3); Blood Urea Nitrogen 29 mg/dL (7-17); Calcium 9.5 mg/dL (8.4-10.2); Carbon Dioxide 29 mmol/L (22-30); Chloride 101 mmol/L (98-107); Estimated Glomerular Filt Rate 32; Glucose 149 mg/dL (65-110); Potassium 3.8 mmol/L (3.4-5.0); Sodium 139 mmol/L (137-145)
== END 2023-05-24 11:11 | disposition home or self-care (01) ==
PROVIDERS: PCP Nurse Practitioner Adult Health; Visit Provider Nurse Practitioner Adult Health
DX: R53.1 Weakness (principal); R53.83 Other fatigue; E87.6 Hypokalemia; I10 Essential (primary) hypertension
CPT/HCPCS: 36415; 80053; 85025